=== PATIENT | female | born 1975 | race Caucasian/White ===

== ENCOUNTER 2021-05-27 09:45 | Emergency (ER) | payer OTHER ==
[~2021-05-27] VITALS: Ht 175.3 cm; Wt 73.4 kg
[2021-05-27] MEDS ORDERED: EPINEPHRINE 1 MG/ML, 1ML IM ONE (10:30)
[2021-05-27] MEDS ORDERED: DIPHENHYDRAMINE 50 MG/ML, 1ML IVPush PRN (10:30)
[2021-05-27] MEDS ORDERED: COVID-19 VACC,MRNA(MODERNA)/PF 100 MCG/0.5ML IM-VACC ONE ×2 (10:30→11:00)
[2021-05-27] MEDS ORDERED: methylPREDNISolone SOD SUCC 125 MG/2 ML IVPush PRN (10:30)
[2021-05-27] MEDS ORDERED: FAMOTIDINE 20 MG/2 ML ONE (10:51)
[2021-05-27] MEDS ORDERED: EPINEPHRINE 1 MG/ML, 1ML ONE ×2 (10:51→11:06)
[2021-05-27] MEDS ORDERED: DIPHENHYDRAMINE 50 MG/ML, 1ML ONE (10:51)
[2021-05-27] MEDS ORDERED: methylPREDNISolone SOD SUCC 125 MG/2 ML ONE (10:51)
--- NOTE | 2021-05-27 10:56 | NUR ---
pt completed vaccination consent/screening form. placed onto chart. per ed md, adminster vaccination in 2 seperate doses at 20 minutes apart to limit anaphylactic potential. Pt agrees with poc, vaccine split into 2 syringes by pharm.
[2021-05-27] MEDS: FAMOTIDINE 20 MG/2 ML IVPush PRN ×2 (11:02→11:19)
--- NOTE | 2021-05-27 11:02 | NUR ---
CONTINUOUS SPO2 MONITORING IN PLACE. VSS. [facility] MEDS AT BEDSIDE.
[2021-05-27] MEDS ORDERED: ALBUTEROL/IPRATROPIUM 2.5MG/0.5MG, 3 ML ONE (11:07)
--- NOTE | 2021-05-27 11:09 | NUR ---
PT HAD ALMOST INSTANT REACTION TO IMMUNIZATION STATING THAT HER THROAT WAS CLOSING AND THAT HER STOMACH HURT. PT MEDICATED ORDERED ON EMAR. DR. CACERES AT BEDSIDE.
[2021-05-27] MEDS ORDERED: ALBUTEROL SULFATE 2.5 MG/3 ML NPPB ONE (11:30)
--- NOTE | 2021-05-27 11:36 | NUR ---
PT REPORTS THAT STOMACH STILL FEELS WARM AND TONGUE STILL FEELS SLIGHTLY SWOLLEN BUT THAT SYMPTOMS ARE IMPROVING.
--- NOTE | 2021-05-27 12:48 | NUR ---
PT AMBULATORY TO RESTROOM AT THIS TIME. VSS.
[2021-05-27 13:34] VITALS: BP 137/83
== END 2021-05-27 13:48 | disposition home or self-care (01) ==
LOC: ED 10:15
DX: T78.49XA Other allergy, initial encounter (principal); J98.01 Acute bronchospasm; Y84.9 Medical procedure, unspecified as the cause of abnormal reaction of the patient, or of later complication, without mention of misadventure at the time of the procedure; Y92.89 Other specified places as the place of occurrence of the external cause; R94.31 Abnormal electrocardiogram [ECG] [EKG]; Z23 Encounter for immunization
CPT/HCPCS: 91301; 93005; 96374; 96375; 99285; J1200; J2930; J7613; M0243

== ENCOUNTER 2021-05-27 17:39 | Emergency (ER) | payer OTHER ==
[~2021-05-27] VITALS: Ht 175.3 cm; Wt 72.1 kg
[2021-05-27] MEDS ORDERED: FAMOTIDINE 20 MG TABLET PO ONE (18:00)
[2021-05-27] MEDS ORDERED: PROMETHAZINE 25 MG/ML, 1ML IM ONE (19:00)
[2021-05-27] MEDS ORDERED: DIPHENHYDRAMINE 25 MG CAPSULE PO ONE (19:00)
[2021-05-27] MEDS ORDERED: PROMETHAZINE 25 MG/ML, 1ML ONE (19:12)
[2021-05-27] MEDS ORDERED: DIPHENHYDRAMINE 25 MG CAPSULE ONE (19:13)
[2021-05-27] MEDS ORDERED: FAMOTIDINE 20 MG/2 ML ONE (19:13)
[2021-05-27] MEDS ORDERED: FAMOTIDINE 20 MG/2 ML IV ONE (19:30)
--- NOTE | 2021-05-27 20:45 | NUR ---
mouth tingling improved as is hr (down to 80s) erp made aware
[2021-05-27 21:37] VITALS: BP 129/73
== END 2021-05-27 21:41 | disposition home or self-care (01) ==
LOC: ED 18:00
DX: T78.40XA Allergy, unspecified, initial encounter (principal); F41.1 Generalized anxiety disorder; R00.0 Tachycardia, unspecified
CPT/HCPCS: 96372; 96374; 99284; J2550; J7512; Q0163